=== PATIENT | female | born 1970 | race Hispanic/Latino ===

== ENCOUNTER 2019-05-26 07:58 | Day surgery (SDC) | payer MEDICAID ==
[2019-05-26] MEDS ORDERED: ZOFRAN IV PRN (08:38)
[2019-05-26] MEDS ORDERED: SUBLIMAZE IV PRN (08:38)
--- NOTE | 2019-05-26 08:41 | Anesthesia Day of Surgery ---
Anesthesia Day of Surgery - Day of Surgery Patient Examined: Yes Patient H&P Reviewed: Yes Patient is NPO: Yes
--- NOTE | 2019-05-26 08:43 | Anesthesia Consultation ---
Anesthesia Consult and Med Hx Date of service: 05/26/19 - Airway Anesthetic Teeth Evaluation: Chipped (LOOSE UPPER RIGHT) ROM Head & Neck: Adequate Mental/Hyoid Distance: Adequate Mallampati Class: Class II Intubation Access Assessment: Probably Good - Pre-Operative Health Status ASA Pre-Surgery Classification: ASA3 Proposed Anesthetic Plan: General - Pulmonary Hx Smoking: Yes (1/2 PPD X 30 YRS) Hx Asthma: Yes (INHALER PRN) Hx Pneumonia: Yes (10/2018- RESOLVED) Hx Sleep Apnea: Yes (DX SLEEP APNEA WITH CPAP USE.) - Cardiovascular System Hx Hypertension: No - Central Nervous System Hx Back Pain: Yes (TO NAEEM HIPS-IN PHYSICAL THEAPY NOW) - Gastrointestinal Hx Gastroesophageal Reflux Disease: Yes - Endocrine Hx Thyroid Disease: Yes (Goiter) Hx Hypothyroidism: Yes (ON DAILY MEDS) - Hematic Hx Anemia: Yes - Other Systems Hx Cancer: No
[2019-05-26] MEDS ORDERED: VERSED IV NR (09:00)
[2019-05-26] MEDS ORDERED: LACTATED RINGERS 1,000 ML IV SCH (09:00)
[2019-05-26 09:21] LABS: Basophils % (Auto) 0.2 % (0.0-1.8); Eosinophils # (Auto) 0.6 K/mm3 (0.0-0.4); Eosinophils % (Auto) 6.6 % (0.0-4.3); Lymphocytes # (Auto) 4.2 K/mm3 (1.2-5.4); Lymphocytes % (Auto) 43.3 % (13.4-35.0); Mean Corpuscular HGB Conc 34 % (30-34); Mean Corpuscular Volume 93 fl (79-97); Monocytes # (Auto) 0.7 K/mm3 (0.0-0.8); Monocytes % (Auto) 6.9 % (0.0-7.3); Platelet Count 296 K/mm3 (140-440); Red Blood Count 4.08 M/mm3 (3.65-5.03); Red Cell Distribution Width 12.7 % (13.2-15.2)
[2019-05-26] MEDS ORDERED: ANCEF/STERILE WATER 2 GM/20 ML IV NR (10:00)
[2019-05-26] MEDS ORDERED: XYLOCAINE MPF 2% ONE (10:08)
[2019-05-26] MEDS ORDERED: DIPRIVAN 10 MG/ML IV ONE (10:08)
[2019-05-26] MEDS ORDERED: DILAUDID ONE (10:08)
[2019-05-26] MEDS ORDERED: ZOFRAN ONE (11:01)
--- NOTE | 2019-05-26 11:16 | Short Stay Summary ---
Short Stay Documentation Date of service: 05/26/19 - History H&P: obtained from office - Allergies and Medications Current Medications: Allergies No Known Allergies Allergy (Verified 05/20/19 14:54) Home Medications Medication Instructions Recorded Confirmed Last Taken Type ALPRAZolam [Xanax TAB] 1 mg PO TID PRN 05/20/19 05/20/19 05/25/19 History Albuterol Sulfate [Proventil Hfa] 2 puff IH PRN PRN 05/20/19 05/20/19 05/25/19 History Dextroamphetamine/Amphetamine 30 mg PO DAILY 05/20/19 05/20/19 05/25/19 History [Adderall] HYDROcodone/ACETAMINOPHEN 1 each PO PRN PRN 05/20/19 05/20/19 05/25/19 History [Hydrocodone-Acetamin 5-300 mg] Ibuprofen [Motrin] 800 mg PO PRN PRN 05/20/19 05/26/19 1 Week Ago History ~05/19/19 Levothyroxine [Synthroid] 88 mcg PO QAM 05/20/19 05/20/19 05/25/19 History Omeprazole Magnesium [PriLOSEC Otc] 20 mg PO PRN PRN 05/20/19 05/20/19 05/25/19 History traMADol [Ultram 50 MG tab] 50 mg PO PRN PRN 05/20/19 05/20/19 05/25/19 History Active Medications Cefazolin Sodium (Ancef/Sterile Water 2 Gm/20 Ml) 2 gm IV PREOP NR Stop: 05/26/19 16:00 Fentanyl (Sublimaze) 50 mcg IV Q5MIN PRN PRN Reason: Pain , Severe (7-10) Stop: 05/26/19 20:00 Lactated Ringer's (Lactated Ringers) 1,000 mls @ 125 mls/hr IV DIRECT TERRY Last Admin: 05/26/19 09:05 Dose: 125 mls/hr Documented by: Midazolam HCl (Versed) 2 mg IV PREOP NR Stop: 05/26/19 23:59 Last Admin: 05/26/19 09:18 Dose: 2 mg Documented by: Ondansetron HCl (Zofran) 4 mg IV ONCE PRN PRN Reason: Nausea And Vomiting - Brief post op/procedure progress note Date of procedure: 05/26/19 Pre-op diagnosis: left ureteral stone 6mm Post-op diagnosis: same Procedure: left eswl Anesthesia: MARCUS Surgeon: FRAN DIANA Estimated blood loss: none - Hospital course Hospital course: flomax,ultram,norco,strainer,post op info on chart - Disposition Condition at discharge: Stable Disposition: DC-01 TO HOME OR SELFCARE Short Stay Discharge Plan Follow up with: SHAHNAZ ROBERTS MD [Primary Care Provider] - 7 Days
--- NOTE | 2019-05-26 11:42 | Operative Report ---
PREOPERATIVE DIAGNOSIS: Left ureteral stone, 6 mm. POSTOPERATIVE DIAGNOSIS: Left ureteral stone, 6 mm. PROCEDURE: Left extracorporal shock wave lithotripsy. SURGEON: Jared Cantu MD ANESTHESIA: General. ESTIMATED BLOOD LOSS: Minimal. FLUIDS: Crystalloid. COMPLICATIONS: No complications. INDICATIONS: This patient is a 49-year-old female seen in the office. CT of abdomen and pelvis revealed a 6 mm proximal ureteral stone with pain. Discussed options, she agreed to proceed with surgical intervention. DESCRIPTION OF PROCEDURE: The patient was taken to the operative suite, placed in a supine position. After adequate general anesthesia, the stone was localized with 2 planes using fluoroscopy. Extracorporal shock wave lithotripsy was administered with maximum kV of 9 for approximately 500 shocks. She was given a total of 3000. Adequate fragmentation could be appreciated. She tolerated the procedure well. She was extubated. She will go home on Flomax, [place], Ultram and a strainer. JOB# [id number] [facility]
[2019-05-26] MEDS ORDERED: NORCO 5/325 PO PRN (11:50)
[2019-05-26 12:13] VITALS: BP 124/70
--- NOTE | 2019-05-26 17:20 | Post Anesthesia Evaluation ---
- Post Anesthesia Evaluation Patient Participated: Yes Airway Patent: Yes Stable Respiratory Function: Yes Nausea/Vomiting: No Temp > 96.8F: Yes Pain Manageable: Yes Adequeate Hydration: Yes Anesthesia Complications: No
== END 2019-05-26 12:50 | disposition home or self-care (01) ==
LOC: OR 07:58
PROVIDERS: ATTEND Urology
DX: N20.1 Calculus of ureter (principal); G43.909 Migraine, unspecified, not intractable, without status migrainosus; E78.00 Pure hypercholesterolemia, unspecified; J45.909 Unspecified asthma, uncomplicated; G47.30 Sleep apnea, unspecified; K21.9 Gastro-esophageal reflux disease without esophagitis; M19.90 Unspecified osteoarthritis, unspecified site; E03.9 Hypothyroidism, unspecified; F32.9 Major depressive disorder, single episode, unspecified; F41.9 Anxiety disorder, unspecified; F17.210 Nicotine dependence, cigarettes, uncomplicated; Z79.899 Other long term (current) drug therapy; Z90.49 Acquired absence of other specified parts of digestive tract; Z87.440 Personal history of urinary (tract) infections; Z98.890 Other specified postprocedural states; Z86.2 Personal history of diseases of the blood and blood-forming organs and certain disorders involving the immune mechanism
CPT/HCPCS: 36415; 50590; 85025; J0690; J1170; J2250; J2405; J2704; J3010; J7120